=== PATIENT | female | born 1945 | race Caucasian/White ===

== ENCOUNTER → 2019-01-20 | Outpatient (CLI) | payer MEDICARE ==
[2019-01-20 18:17] LABS: Anisocytosis Slight; HCT 34.9 % (34.0-46.0); HGB 10.3 gm/dL (11.4-16.0); Hypochromasia Marked; MCH 24.8 pg (25.0-35.0); MCHC 29.4 g/dL (31.0-37.0); MCV 84.1 fL (80.0-100.0); Mean Platelet Volume 6.4; Platelet Count 352 k/uL (150-450); RBC 4.14 m/uL (3.80-5.40); RDW 17.2 % (11.5-15.5); WBC 8.8 k/uL (3.8-10.6)
[2019-01-20 18:24] LABS: ALT 11 U/L (9-52); Anion Gap 11 mmol/L; Blood Urea Nitrogen 14 mg/dL (7-17); Calcium 9.8 mg/dL (8.4-10.2); Carbon Dioxide 25 mmol/L (22-30); Chloride 106 mmol/L (98-107); Glucose 72 mg/dL (74-99); Potassium 4.3 mmol/L (3.5-5.1); Sodium 142 mmol/L (137-145)
--- NOTE | 2019-01-20 19:23 | CT ---
EXAMINATION TYPE: CT angio chest DATE OF EXAM: 01/20/2019 COMPARISON: NONE HISTORY: SOB, possible pulmonary embolism CT DLP: 739.6 mGycm. Automated Exposure Control for Dose Reduction was Utilized. CONTRAST: CTA scan of the thorax is performed without and with IV Contrast, patient injected with 70cc mL of Is ovue 370, pulmonary embolism protocol. MIP Images are created on CT scanner and reviewed. FINDINGS: LUNGS: Mild to moderate underlying emphysematous change is present with upper lobe fibrotic changes a nd bleb formation noted bilaterally. No suspicious focal consolidation. No suspicious masses. No pleu ral effusion or pneumothorax. MEDIASTINUM: There is satisfactory enhancement of the pulmonary artery and its branches, there is no CT evidence for pulmonary embolism. Satisfactory enhancement of left heart system aorta is identifie d. There is no thoracic aortic aneurysm or dissection. Mild to moderate calcified plaque along course of descending aorta is noted. There are no greater than 1 cm hilar or mediastinal lymph nodes. No pericardial effusion is seen. Cardiomegaly is present. OTHER: Visualized liver is hypodense consistent with diffuse fatty infiltration. Moderate multilevel anterior and lateral spurring in the thoracic spine is present. Cholecystectomy clips are noted. IMPRESSION: 1. No CT evidence for acute pulmonary embolism. 2. Cardiomegaly with chronic emphysematous and parenchymal fibrotic changes most prominent in the flores ateral upper lobes. No suspicious focal infiltrate.
== END | disposition home or self-care (01) ==
LOC: RADCTMAIN 17:03
PROVIDERS: ATTEND Family Medicine
DX: I51.7 Cardiomegaly (principal); J43.9 Emphysema, unspecified; J84.10 Pulmonary fibrosis, unspecified; E03.9 Hypothyroidism, unspecified; E78.5 Hyperlipidemia, unspecified; E11.9 Type 2 diabetes mellitus without complications; I10 Essential (primary) hypertension
CPT/HCPCS: 84439; 80048; 84443; 84460; 85027; 83036; 71275; 36415; Q9967

== ENCOUNTER → 2019-03-09 | Outpatient (CLI) | payer MEDICARE ==
[2019-03-09 16:27] LABS: Anisocytosis Slight; Basophils # (A) 0.1 k/uL (0-0.2); Basophils % (A) 1 %; Eosinophils # (A) 0.3 k/uL (0-0.7); Eosinophils % (A) 3 %; HGB 10.2 gm/dL (11.4-16.0); Hypochromasia Marked; Lymphocytes # (A) 1.5 k/uL (1.0-4.8); Lymphocytes % (A) 15 %; MCH 25.2 pg (25.0-35.0); MCHC 29.9 g/dL (31.0-37.0); MCV 84.4 fL (80.0-100.0); Mean Platelet Volume 6.9; Monocytes # (A) 0.7 k/uL (0-1.0); Monocytes % (A) 7 %; Neutrophils # (A) 6.8 k/uL (1.3-7.7); Neutrophils % (A) 70 %; Platelet Count 386 k/uL (150-450); RBC 4.03 m/uL (3.80-5.40); RDW 18.2 % (11.5-15.5); WBC 9.7 k/uL (3.8-10.6)
[2019-03-09 17:14] LABS: Erythrocyte Sedimentation Rate 50 mm/hr (0-20)
[2019-03-10 00:03] LABS: Albumin 4.7 g/dL (3.80-4.90); Albumin/Globulin Ratio 2.61 (1.60-3.17); Anion Gap 11.4 mmol/L (4.00-12.00); BUN/Creat Ratio 22.5 Ratio (12.00-20.00); Calcium 9.6 mg/dL (8.7-10.3); Carbon Dioxide 24.6 mmol/L (21.6-31.8); Globulin 1.8 g/dL (1.6-3.3); Potassium 4.3 mmol/L (3.5-5.5); Total Bilirubin 0.3 mg/dL (0.2-1.2); Total Protein 6.5 g/dL (6.2-8.2)
[2019-03-10 00:11] LABS: T4, Free (Free Thyroxine) 1.2 ng/dL (0.80-1.80)
[2019-03-10 01:04] LABS: Hepatitis A Antibody IgM Non-Reactive (Non-Reactive); Hepatitis B Core IgM Non-Reactive (Non-Reactive)
[2019-03-10 01:13] LABS: Rheumatoid Factor <4 IU/mL (0-15)
== END | disposition home or self-care (01) ==
LOC: LABWHC1 15:37
PROVIDERS: ATTEND Internal Medicine
DX: M35.9 Systemic involvement of connective tissue, unspecified (principal)
CPT/HCPCS: 36415; 80053; 80074; 82164; 82550; 84439; 84443; 85025; 85652; 86038; 86141; 86235; 86431

== ENCOUNTER → 2019-03-25 | Outpatient (CLI) | payer MEDICARE, OTHER ==
[2019-03-25 14:25] LABS: Anisocytosis Slight; Basophils # (A) 0.1 k/uL (0-0.2); Basophils % (A) 1 %; Eosinophils # (A) 0.2 k/uL (0-0.7); Eosinophils % (A) 2 %; HCT 33.5 % (34.0-46.0); HGB 9.9 gm/dL (11.4-16.0); Hypochromasia Marked; Lymphocytes # (A) 1.4 k/uL (1.0-4.8); Lymphocytes % (A) 14 %; MCH 25.1 pg (25.0-35.0); MCHC 29.5 g/dL (31.0-37.0); MCV 85.1 fL (80.0-100.0); Mean Platelet Volume 6.4; Monocytes # (A) 0.6 k/uL (0-1.0); Monocytes % (A) 6 %; Neutrophils # (A) 7.5 k/uL (1.3-7.7); Neutrophils % (A) 75 %; Platelet Count 412 k/uL (150-450); RBC 3.94 m/uL (3.80-5.40); RDW 19.1 % (11.5-15.5)
[2019-03-25 14:30] LABS: African American GFR (CKD) >90 (>60 ml/min/1.73 sqM); Anion Gap 13 mmol/L; Blood Urea Nitrogen 17 mg/dL (7-17); Carbon Dioxide 22 mmol/L (22-30); Chloride 104 mmol/L (98-107); Glucose 178 mg/dL (74-99); Potassium 4.7 mmol/L (3.5-5.1); Sodium 139 mmol/L (137-145)
[2019-03-25 14:35] LABS: Partial Thromboplastin Time 23.9 sec (22.0-30.0); Prothrombin Time 10.4 sec (9.0-12.0)
== END | disposition home or self-care (01) ==
LOC: LABPAT 13:14
PROVIDERS: ATTEND Thoracic Surgery (Cardiothoracic Vascular Surgery)
DX: Z01.818 Encounter for other preprocedural examination (principal); Z01.812 Encounter for preprocedural laboratory examination; J84.9 Interstitial pulmonary disease, unspecified
CPT/HCPCS: 36415; 80051; 82565; 82947; 84520; 85025; 85610; 85730; 93005

== ENCOUNTER 2019-04-08 06:34 | Day surgery (SDC) | payer MEDICARE, OTHER ==
[~2019-04-08 06:34] MED LIST: DEXAMETHASONE SOD PHOSPHATE 10 MG/ML 1 ML VIAL IV ONE; HYDROmorphone 0.5 MG/0.5 ML SYRINGE IVP PRN; LACTATED RINGERS 1,000 ML IV SCH; LIDOCAINE 1% 20 ML VIAL (10MG/ML) FOR IV START INTRADERMA PRN; MIDAZOLAM 2 MG/2 ML VIAL IV PRN; ONDANSETRON 4 MG/2 ML VIAL IVP ONE; Pre Op ABX Message 1 EACH MISC MISCELLANE ONE; SCOPOLAMINE 1.5MG/72HR PATCH TRANSDERM ONE
[2019-04-08 07:28] LABS: Glucose,Whole Blood 131 mg/dL (75-99)
[2019-04-08] MEDS ORDERED: ROCURONIUM BROMIDE 10 MG/ML 10 ML VIAL IV ONE (07:55)
[2019-04-08] MEDS ORDERED: fentaNYL (PF) 50 MCG/ML 2 ML AMP ONE (07:55)
[2019-04-08] MEDS ORDERED: GLYCOPYRROLATE 0.2 MG/ML 2 ML VIAL ONE (07:55)
[2019-04-08] MEDS ORDERED: SUCCINYLCHOLINE CHLORIDE 100 MG/5 ML SYR IV ONE (07:55)
[2019-04-08] MEDS ORDERED: NEOSTIGMINE 1 MG/ML 10 ML VIAL ONE (07:55)
[2019-04-08] MEDS ORDERED: PROPOFOL 10 MG/ML 20 ML VIAL IV ONE (07:55)
[2019-04-08] MEDS ORDERED: PHENYLEPHRINE-0.9% NACL SYG 1 MG/10 ML SYRINGE ONE (07:55)
[2019-04-08] MEDS ORDERED: LIDOCAINE 1% INJ 10MG/ML (20 ML MDV) ONE (07:55)
[2019-04-08] MEDS ORDERED: MIDAZOLAM (PF) 2 MG/2 ML VIAL IV ONE (08:00)
[2019-04-08] MEDS ORDERED: SODIUM CHLORIDE 0.9% 100 ML with ceFAZolin 2,000 MG IV ONE ×2 (08:30)
[2019-04-08] MEDS ORDERED: BUPIVACAINE (PF) 0.5% 30 ML VIAL SQ ONE (08:45)
[2019-04-08] MEDS ORDERED: LACTATED RINGERS 1,000 ML IV ONE (08:57)
[2019-04-08] MEDS ORDERED: TRIAMCINOLONE 0.1% CREAM 80 GM TUBE TOPICAL PRN (09:02)
[2019-04-08] MEDS ORDERED: NYSTATIN 100,000UNIT/GM CREAM 30 GM TUBE TOPICAL PRN (09:02)
--- NOTE | 2019-04-08 09:27 | P.OP ---
Date of Procedure: 04/08/19 Preoperative Diagnosis: Bilateral pulmonary infiltrates Postoperative Diagnosis: Same Procedure(s) Performed: Left thoracoscopic lung biopsy Anesthesia: YOGI Surgeon: Alexander Carolina Sat Tutor #1: Diego Haynes Estimated Blood Loss (ml): 10 IV fluids (ml): 800 Urine output (ml): 0 Pathology: other (Biopsies of left upper and lower lobe sent for pathology and cultures) Condition: stable Disposition: PACU Indications for Procedure: 74-year-old female with symptomatic dyspnea and bilateral pulmonary infiltrates referred for biopsy by Dr. Carmelina Denis. Operative Findings: Poor lung compliance, normal lung consistency Description of Procedure: The patient was brought to the operating room, placed supine on the operating table, anesthetized and intubated with a double-lumen endotracheal tube. Tube was positioned with fiberoptic bronchoscopy. Tube was secured and the patient turned into the right lateral decubitus position. The left chest was sterilely prepped and draped. 3 one-inch incisions were made in the left chest and the video thoracoscope was introduced. Single lung insufflation had begun. The lung did not deflate well due to poor lung compliance. Generous biopsies of the left upper lobe and left lower lobe were obtained with multiple firings of Endo BARRY stapler. The specimens were placed on the back table and cut and a small p ortion sent for culture, the remainder sent for pathology. 28-Persian chest tube was placed through separate stab incision and positioned posterior apically. It was secured with 0 Ethibond. The lung was reinflated under thoracoscopic visualization and then the thoracoscope was removed. The incisions were closed with layers of Vicryl suture. The ribs were anesthetized with half percent Marcaine at the level of the incisions. Skin glue and dry sterile dressings were applied. The patient was turned supine and was still pending extubation at the time of this dictation.
--- NOTE | 2019-04-08 10:05 | XR ---
EXAMINATION TYPE: XR chest 1V portable DATE OF EXAM: 04/08/2019 COMPARISON: 03/09/2019 HISTORY: Post VATS FINDINGS: There is a diffuse interstitial pattern with cardiomegaly. Left-sided chest tube seen with no sizable pneumothorax. Left basilar consolidation and small effusion suspected. Hypertrophic change of the sp ine. IMPRESSION: 1. No pneumothorax. 2. Cardiomegaly with interstitial pattern may be related to reduced inspiration correlate clinically to exclude mild venous congestion. 3. Left basilar atelectasis or infiltrate with small pleural effusion.
[2019-04-08] MEDS ORDERED: ONDANSETRON 4 MG/2 ML VIAL IVP PRN (10:20)
[2019-04-08] MEDS ORDERED: LACTATED RINGERS 1,000 ML IV SCH (10:20)
[2019-04-08] MEDS ORDERED: IPRATROPIUM-ALBUTEROL 3 ML NEB IH PRN (10:20)
[2019-04-08] MEDS: IPRATROPIUM-ALBUTEROL 3 ML NEB IH SCH ×3 (10:53→19:16)
[2019-04-08] MEDS: KETOROLAC 30 MG/ML 1 ML VIAL IVP SCH ×3 (10:55→23:12)
[2019-04-08 11:06] VITALS: BMI 28.5
[2019-04-08 11:35] LABS: Glucose,Whole Blood 169 mg/dL (75-99)
[2019-04-08] MEDS: traMADol 50 MG TAB PO SCH ×3 (12:01→23:12)
[2019-04-08] MEDS: INSULIN ASPART (NovoLOG) 100 UNIT/ML VIAL SQ SCH ×3 (12:02→20:47)
[2019-04-08] MEDS: ACETAMINOPHEN TAB 500 MG TAB PO PRN ×2 (13:27→20:46)
--- NOTE | 2019-04-08 13:28 | P.CNPUL ---
History of Present Illness Consult date: 04/08/19 Requesting physician: Alexander Carolina Reason for consult: abnormal CXR/CT Chief complaint: Shortness of breath History of present illness: This is a very pleasant 74-year-old female patient who follows with Dr. Driscoll as her primary care physician. She has a history of hypothyroidism, diabetes mellitus, GERD, diverticular disease, hyperlipidemia, obesity, hypertension, COPD with FEV1 value 77% of predicted and chronic hypoxic respiratory failure. She had been seen by Dr. Denis over 3 years ago and at that time her pulmonary status was stable. She was back as a new patient on 03/09/2019 after finding abnormal having an abnormal CAT scan of the chest. There were evidence of mild emphysematous changes in the upper lobes. There was some fibrotic changes noted as well. He has significant complaints of shortness of breath on minimal exertion. No cough or congestion. No hemoptysis. She was referred to Dr. Carolina for a VATS procedure and biopsy which was performed here today. She had undergone biopsies of left upper and lower lobes and chest tube remains in place. She is seen today in consultation on the selective care unit. She is awake and alert in no acute distress. He is requiring 8 L high flow nasal cannula to maintain O2 saturations in the 90s. She's afebrile. Hemodynamically stable she's been initiated on DuoNeb inhalations and antibiotics in the form of cefazolin. He did Ringer's at 50 MLS per hour. She is educated regarding the use the incentive spirometer. Chest x-ray shows no evidence of pneumothorax. There is some left basilar atelectasis with small effusion. Pathology pending. Review of Systems REVIEW OF SYSTEMS: CONSTITUTIONAL: Denies any recent significant weight loss or weight gain. EYES: Denies change in vision. EARS, NOSE, MOUTH, THROAT: Denies headaches, denies sore throat. CARDIOVASCULAR: Denies chest pain, palpitations or syncopal episodes. RESPIRATORY: Positive for shortness of breath, no significant cough, congestion or hemoptysis. GASTROINTESTINAL: Denies change in appetite, denies abdominal pain GENITOURINARY: Denies hematuria, denies infections. MUSKULOSKELETAL: Denies pain, denies swelling. INTEGUMENTARY: Denies rash, denies eczema. NEUROLOGICAL: Denies recent memory loss, no recent seizure activity. PSYCHIATRIC: Denies anxiety, denies depression. HEMATOLOGIC/LYMPHATIC: Denies anemia, denies enlarged lymph nodes. Past Medical History Past Medical History: Coronary Artery Disease (CAD), Chest Pain / Angina, CVA/TIA, Diabetes Mellitus, GERD/Reflux, Hyperlipidemia, Hypertension, Thyroid Disorder Additional Past Medical History / Comment(s): SOB w/ last 6 mos started on oxygen prn-not sure how many liters,anemia,vertigo,Hx TIAs yrs ago-no residual,hypothyroid,restless leg syndrome,diverticulitis,IBS History of Any Multi-Drug Resistant Organisms: None Reported Past Surgical History: Cholecystectomy, Tonsillectomy Additional Past Surgical History / Comment(s): flores carotid endarterectomy,left subclavian "balloon procedure to clean out",glaucoma and cataract flores eyes,rt knee torn meniscus,mult laparoscopies,flores breast bx. VATS procedure 04/08 Past Anesthesia/Blood Transfusion Reactions: Motion Sickness Additional Past Anesthesia/Blood Transfusion Reaction / Comment(s): vertigo,no hx blood transfusion Smoking Status: Former smoker - Past Family History Mother Family Medical History: Cancer Additional Family Medical History / Comment(s): lung Father Family Medical History: Myocardial Infarction (DE) Medications and Allergies Home Medications Medication Instructions Recorded Confirmed Type Acetaminophen/Diphenhydramine 2 tab PO HS 04/02/19 04/02/19 History [Tylenol PM 500-25mg] Aspirin 81 mg PO DAILY 04/02/19 04/02/19 History Dicyclomine HCl 10 mg PO BID 04/02/19 04/02/19 History Etodolac [Lodine] 400 mg PO BID PRN 04/02/19 04/02/19 History Gemfibrozil [Lopid] 600 mg PO AC-BID 04/02/19 04/02/19 History Insulin Aspart [NovoLOG Flexpen] 0 units SQ TID-W/MEALS 04/02/19 04/02/19 History Insulin Glargine,Hum.rec.anlog 60 units SQ HS 04/02/19 04/02/19 History [Toujeo Solostar] Levothyroxine Sodium [Synthroid] 100 mcg PO QAM 04/02/19 04/02/19 History Lisinopril [Zestril] 20 mg PO BID 04/02/19 04/02/19 History Metoprolol Succinate (ER) [Toprol 100 mg PO QAM 04/02/19 04/02/19 History Xl] Multivitamins, Thera [Multivitamin 1 tab PO DAILY 04/02/19 04/02/19 History (formulary)] Nitroglycerin Sl Tabs [Nitrostat] 0.4 mg SUBLINGUAL Q5M PRN 04/02/19 04/08/19 History Nystatin 100,000Unit/gm Cream 1 applic TOPICAL BID PRN 04/02/19 04/02/19 History [Mycostatin Cream] Omeprazole [PriLOSEC] 20 mg PO HS 04/02/19 04/02/19 History Simvastatin 40 mg PO HS 04/02/19 04/02/19 History Triamcinolone 0.1% Cream [Kenalog 1 applic TOPICAL TID PRN 04/02/19 04/02/19 History 0.1% Cream] Venlafaxine HCl ER [Effexor XR] 150 mg PO HS 04/02/19 04/02/19 History clonazePAM 1 mg PO HS 04/02/19 04/02/19 History metFORMIN HCL 1,000 mg PO BID 04/02/19 04/02/19 History Allergies Allergy/AdvReac Type Severity Reaction Status Date / Time ampicillin Allergy Rash/Hives Verified 04/08/19 06:55 egg Allergy Nausea & Verified 04/08/19 06:55 Vomiting & Diarrhea Sulfa (Sulfonamide Allergy Rash/Hives Verified 04/08/19 06:55 Antibiotics) Physical Exam Vitals: Vital Signs Temp Pulse Pulse Resp BP Pulse Ox 04/08/19 11:13 14 04/08/19 11:08 67 04/08/19 11:07 92 L 04/08/19 10:59 97.5 F L 66 14 106/51 92 L 04/08/19 10:55 69 04/08/19 10:15 66 18 90/50 92 L 04/08/19 10:00 66 16 96/52 93 L 04/08/19 09:45 66 16 90/52 92 L 04/08/19 09:34 97.6 F 64 18 99/52 92 L 04/08/19 07:09 97.7 F 99 16 175/82 85 L Intake and Output 04/07/19 04/08/19 04/08/19 22:59 06:59 14:59 Intake Total 1100 Output Total 23 Balance 1077 Intake: IV 1100 Output: Chest Tube Drainage 20 Chest Tube Left Lateral 20 Chest Estimated Blood Loss 3 Other: Weight 73 kg GENERAL EXAM: Alert, comfortable in no apparent distress. On 8 L high flow nasal cannula. HEAD: Normocephalic. EYES: Normal reaction of pupils, equal size. NOSE: Clear with pink turbinates. THROAT: No erythema or exudates. NECK: No masses, no JVD. CHEST: No chest wall deformity. Left-sided chest tube secured in place. LUNGS: Equal air entry coarse rhonchi more so on the left. CVS: S1 and S2 normal with no audible murmur, regular rhythm. ABDOMEN: No hepatosplenomegaly, normal bowel sounds, no guarding or rigidity. SPINE: No scoliosis or deformity SKIN: No rashes CENTRAL NERVOUS SYSTEM: No focal deficits, tone is normal in all 4 extremities. EXTREMITIES: There is no peripheral edema. No clubbing, no cyanosis. Peripheral pulses are intact. Results - Laboratory Findings Abnormal lab findings: Abnormal Labs 04/08/19 04/08/19 07:23 11:33 POC Glucose (mg/dL) 131 H 169 H - Diagnostic Findings Chest x-ray: image reviewed Assessment and Plan Assessment: Impression: #1 Acute on chronic hypoxic respiratory failure secondary to interstitial lung disease/pulmonary fibrosis, suspect UIP. Status post VATS procedure with biopsies of the left upper and lower lobes. Postoperative day #0. #2 Chronic hypoxic respiratory failure secondary to suspected pulmonary fibrosis and chronic obstructive pulmonary disease. FEV1 value 77% of predicted. #3 [id number] smoking history however quit in 1999. #4 Morbid obesity. #5 Irritable bowel syndrome. #6 Gastroesophageal reflux disease. #7 Hypertension. #8 Hyperlipidemia. #9 Diabetes mellitus, type II. #10 Hypothyroidism. Plan: The patient was seen and evaluated by Dr. Denis. Chest x-ray reviewed. She is needing increased encouragement regarding these the incentive spirometer and cough and deep breathing exercises. Chest tube remains in place. We will titrate down the FiO2 as tolerated. Continue bronchodilators. Increase her activity as tolerated. We'll continue to follow and make further recommendations based on her clinical status. I, the cosigning physician, performed a history & physical examination of the patient. Lungs sounds with coarse rhonchi more so on the left. Maintaining good O2 saturations in the 90s on 8 L high flow nasal cannula. I discussed the assessment and plan of care with my nurse practitioner, Kaity Fraser. I attest to the above note as dictated by her. Time with Patient: Greater than 30
[2019-04-08] MEDS: HEPARIN SODIUM,PORCINE 5,000 UNIT/ML 1 ML VIAL SQ SCH ×2 (15:59→23:11)
[2019-04-08 16:47] LABS: Glucose,Whole Blood 155 mg/dL (75-99)
[2019-04-08 20:24] LABS: Glucose,Whole Blood 123 mg/dL (75-99)
[2019-04-08] MEDS: LISINOPRIL 20 MG TAB PO SCH (20:47)
[2019-04-08] MEDS: metFORMIN 500 MG TAB PO SCH (20:47)
[2019-04-08] MEDS: DICYCLOMINE 10 MG CAP PO SCH (20:47)
[2019-04-08] MEDS ORDERED: INSULIN DETEMIR (LEVEMIR) 100 UNIT/ML SYR SQ SCH (21:00)
[2019-04-08] MEDS ORDERED: clonazePAM 1 MG TAB PO SCH (21:00)
[2019-04-08] MEDS ORDERED: ATORVASTATIN 20 MG TAB PO SCH (21:00)
[2019-04-08] MEDS ORDERED: VENLAFAXINE HCL ER 150 MG CAP PO SCH (21:00)
[2019-04-08] MEDS ORDERED: PANTOPRAZOLE 40 MG TABLET PO SCH (21:00)
[2019-04-09 06:28] LABS: Anisocytosis Slight; Basophils % (A) 0 %; Eosinophils # (A) 0.2 k/uL (0-0.7); Eosinophils % (A) 2 %; HGB 8.5 gm/dL (11.4-16.0); Hypochromasia Marked; Lymphocytes # (A) 0.9 k/uL (1.0-4.8); Lymphocytes % (A) 9 %; MCH 25.7 pg (25.0-35.0); MCHC 29.5 g/dL (31.0-37.0); MCV 87.1 fL (80.0-100.0); Mean Platelet Volume 6.5; Monocytes # (A) 0.6 k/uL (0-1.0); Monocytes % (A) 6 %; Neutrophils # (A) 8.3 k/uL (1.3-7.7); Neutrophils % (A) 80 %; Platelet Count 285 k/uL (150-450); RBC 3.33 m/uL (3.80-5.40); WBC 10.4 k/uL (3.8-10.6)
[2019-04-09] MEDS ORDERED: LEVOTHYROXINE 100 MCG TAB PO SCH (06:30)
[2019-04-09 06:37] LABS: Glucose,Whole Blood 121 mg/dL (75-99)
[2019-04-09 06:42] LABS: African American GFR (CKD) >90 (>60 ml/min/1.73 sqM); Anion Gap 9 mmol/L; Blood Urea Nitrogen 17 mg/dL (7-17); Calcium 9.3 mg/dL (8.4-10.2); Carbon Dioxide 26 mmol/L (22-30); Chloride 104 mmol/L (98-107); Glucose 106 mg/dL (74-99); Potassium 4.5 mmol/L (3.5-5.1); Sodium 139 mmol/L (137-145)
[2019-04-09] MEDS: traMADol 50 MG TAB PO SCH (07:08)
[2019-04-09] MEDS: KETOROLAC 30 MG/ML 1 ML VIAL IVP SCH ×2 (07:09→12:13)
[2019-04-09] MEDS: IPRATROPIUM-ALBUTEROL 3 ML NEB IH SCH ×2 (07:58→11:10)
[2019-04-09] MEDS: metFORMIN 500 MG TAB PO SCH (08:05)
[2019-04-09] MEDS: DICYCLOMINE 10 MG CAP PO SCH (08:05)
[2019-04-09] MEDS: HEPARIN SODIUM,PORCINE 5,000 UNIT/ML 1 ML VIAL SQ SCH (08:06)
[2019-04-09] MEDS: LISINOPRIL 20 MG TAB PO SCH (08:06)
[2019-04-09] MEDS: INSULIN ASPART (NovoLOG) 100 UNIT/ML VIAL SQ SCH ×2 (08:06→12:13)
--- NOTE | 2019-04-09 08:14 | P.PN ---
Subjective Progress Note Date: 04/09/19 Principal diagnosis: Bilateral pulmonary infiltrates. Previous medical history of respiratory insufficiency with home oxygen use, COPD with FEV1 65% of predicted and DLCO 33%, previous tobacco dependance with 30 pack-year history, hypertension, diabetes, coronary artery disease, obesity, TIA status post left carotid endarterectomy, hypothyroid, hyperlipidemia, GERD, inflammatory bowel disease, RLS, depression, and family history of cancer and heart disease. POD#1 left thoracoscopic lung biopsy Postoperative urinary retention requiring straight cath, unexpected The patient is currently sitting up in bed on the cardiac step-down unit in no acute distress eating breakfast. Her chest tube was placed to water seal yesterday and there is currently no air leak present. She does complain of post surgical incisional pain which is controlled on current medication regimen. Also complains of shortness of breath but no more than normal for her. Currently on 4 LPM NC, states she is on home O2 but doesn't know the doseage. She has had urinary retention since surgery requiring straight catheterization with only one spontaneous void, nursing placed sears catheter. Objective - Vital Signs Vital signs: Vital Signs Temp 98.3 F 04/09/19 00:00 Pulse 83 04/09/19 00:00 Resp 20 04/09/19 00:00 BP 127/79 04/09/19 00:00 Pulse Ox 95 04/09/19 00:00 Intake & Output 04/08/19 04/09/19 04/09/19 18:59 06:59 18:59 Intake Total 1340 240 Output Total 513 975 Balance 827 -735 Weight 73 kg 75.1 kg Intake: IV 1100 Oral 240 240 Output: Chest Tube Drainage 60 25 Chest Tube Left Lateral 60 25 Chest Urine 450 950 Straight 450 600 Estimated Blood Loss 3 Other: # Voids 1 - Constitutional General appearance: Present: cooperative, no acute distress - Respiratory Details: Lungs sounds diminished bilaterally. Respirations even, non-labored. Currently on 4 LPM NC with oxygen saturation 95%. Able to achieve 500 mL on her incentive spirometer. Left pleural chest tube to water seal, 215 mL serous drainage since surgery, no air leak present. - Cardiovascular Details: S1/S2 present. Regular rate, rhythm, normal sinus rhythm on telemetry. Palpable peripheral pulses bilaterally. No edema present. No calf pain or tenderness noted. SCDs present. - Gastrointestinal Gastrointestinal Comment(s): Abdomen soft, non-tender, non-distended. Active bowel sounds x 4 quadrants. Tolerating diet. - Genitourinary Genitourinary Comment(s): Patient has had urinary retention requiring straight catheterization since surgery with one episode of spontaneous voiding. - Integumentary Integumentary Comment(s): Skin warm, dry with evidence of good perfusion. Left chest tube site covered with dry, intact dressing. - Neurologic Neurologic: Present: CNII-XII intact - Musculoskeletal Musculoskeletal: Present: strength equal bilaterally - Psychiatric Psychiatric: Present: A&O x's 3, appropriate affect, intact judgment & insight - Allied health notes Allied health notes reviewed: nursing - Labs CBC & Chem 7: 04/09/19 05:59 04/09/19 05:59 Labs: Abnormal Lab Results - Last 24 Hours (Table) 04/08/19 04/08/19 04/08/19 Range/Units 11:33 16:46 20:22 RBC (3.80-5.40) m/uL Hgb (11.4-16.0) gm/dL Hct (34.0-46.0) % MCHC (31.0-37.0) g/dL RDW (11.5-15.5) % Neutrophils # (1.3-7.7) k/uL Lymphocytes # (1.0-4.8) k/uL Glucose (74-99) mg/dL POC Glucose (mg/dL) 169 H 155 H 123 H (75-99) mg/dL 04/09/19 04/09/19 04/09/19 Range/Units 05:59 05:59 06:36 RBC 3.33 L (3.80-5.40) m/uL Hgb 8.5 L (11.4-16.0) gm/dL Hct 29.0 L (34.0-46.0) % MCHC 29.5 L (31.0-37.0) g/dL RDW 19.0 H (11.5-15.5) % Neutrophils # 8.3 H (1.3-7.7) k/uL Lymphocytes # 0.9 L (1.0-4.8) k/uL Glucose 106 H (74-99) mg/dL POC Glucose (mg/dL) 121 H (75-99) mg/dL Microbiology - Last 24 Hours (Table) 04/08/19 08:58 Gram Stain - Preliminary Lung - Left Lower Lobe Tissue Culture - Preliminary 04/08/19 08:58 Acid Fast Bacilli Smear - Final Lung - Left Lower Lobe Acid Fast Bacilli Culture - Preliminary 04/08/19 08:58 Acid Fast Bacilli Smear - Final Lung - Left Upper Lobe Acid Fast Bacilli Culture - Preliminary 04/08/19 08:58 Gram Stain - Preliminary Lung - Left Upper Lobe Tissue Culture - Preliminary 04/08/19 08:58 Anaerobic Culture - Preliminary Lung - Left Lower Lobe 04/08/19 08:58 Anaerobic Culture - Preliminary Lung - Left Upper Lobe 04/08/19 08:58 Fungal Culture - Preliminary Lung - Left Lower Lobe 04/08/19 08:58 Fungal Culture - Preliminary Lung - Left Upper Lobe - Imaging and Cardiology Chest x-ray: image reviewed Assessment and Plan Assessment: 1. Bilateral pulmonary infiltrates, status post left thoracoscopic lung biopsy 2. History of respiratory insufficiency with home oxygen use 3. COPD with FEV1 65% of predicted and DLCO 33% 4. Previous tobacco dependance with 30 pack-year history 5. Hypertension 6. Diabetes 7. Coronary artery disease with previous heart caths but no intervention 8. Obesity 9. History of TIAs status post left carotid endarterectomy 10. Hypothyroid 11. Hyperlipidemia 12. GERD 13. Inflammatory bowel disease 14. RLS 15. Depression 16. Family history of cancer and heart disease 17. Post-operative urinary retention, unexpected Plan: 1. Will discontinue left pleural chest tube. Repeat chest x-ray 2 hours later. 2. Discontinue Sears catheter. 3. Increase activity, ambulate in hallway. 4. Wean O2 as tolerated. Encourage incentive spirometry is 10 times every hour while awake. 5. Bronchodilators per pulmonology. 6. Pain management with current medication regimen. 7. As long as repeat chest x-ray is stable and patient is able to void we will discharge patient to home this afternoon with follow-up with Dr. Carolina next week. 8. More recommendations to follow. Time with Patient: Greater than 30
[2019-04-09] MEDS ORDERED: traMADol 50 MG TAB PO PRN (08:20)
[2019-04-09] MEDS ORDERED: ASPIRIN 81 MG PO SCH (09:00)
[2019-04-09] MEDS ORDERED: METOPROLOL SUCCINATE (ER) 100 MG TAB.ER.24H PO SCH (09:00)
[2019-04-09] MEDS ORDERED: MULTIVITAMINS, THERA 1 EACH TAB PO SCH (09:00)
[2019-04-09] MEDS ORDERED: FENOFIBRATE 160 MG TAB PO SCH (09:00)
[2019-04-09 09:39] VITALS: TEMP 98.7
--- NOTE | 2019-04-09 10:15 | XR ---
EXAMINATION TYPE: XR chest 2V DATE OF EXAM: 04/09/2019 COMPARISON: Chest x-ray 04/08/2019 HISTORY: Post VATS, chest tube TECHNIQUE: Frontal and lateral views of the chest are obtained. FINDINGS: Right-sided chest tube is in place. There is a small apical pneumothorax. Interstitium is increased. Heart size is stable. Patchy basilar density is noted. There are overlying cardiac leads. IMPRESSION: Postprocedural changes. Small left apical pneumothorax. Cardiomegaly. Interstitial lung disease.
--- NOTE | 2019-04-09 11:18 | P.PN ---
Subjective Progress Note Date: 04/09/19 Principal diagnosis: Acute on chronic hypoxic respiratory failure secondary to suspect usual interstitial pneumonia. This is a very pleasant 74-year-old female patient who follows with Dr. Driscoll as her primary care physician. She has a history of hypothyroidism, diabetes mellitus, GERD, diverticular disease, hyperlipidemia, obesity, hypertension, COPD with FEV1 value 77% of predicted and chronic hypoxic respiratory failure. She had been seen by Dr. Denis over 3 years ago and at that time her pulmonary status was stable. She was back as a new patient on 03/09/2019 after finding abnormal having an abnormal CAT scan of the chest. There were evidence of mild emphysematous changes in the upper lobes. There was some fibrotic changes noted as well. He has significant complaints of shortness of breath on minimal exertion. No cough or congestion. No hemoptysis. She was referred to Dr. Carolina for a VATS procedure and biopsy which was performed here today. She had undergone biopsies of left upper and lower lobes and chest tube remains in place. She is seen today in consultation on the selective care unit. She is awake and alert in no acute distress. He is requiring 8 L high flow nasal cannula to maintain O2 saturations in the 90s. She's afebrile. Hemodynamically stable she's been initiated on DuoNeb inhalations and antibiotics in the form of cefazolin. He did Ringer's at 50 MLS per hour. She is educated regarding the use the incentive spirometer. Chest x-ray shows no evidence of pneumothorax. There is some left basilar atelectasis with small effusion. Pathology pending. The patient is seen today 04/09/2019 in follow-up on the selective care unit. She is currently awake and alert in no acute distress. She is breathing easier today as compared to yesterday. Maintaining O2 saturations in the 90s on 4 L/m per nasal cannula. She's afebrile. Hemodynamically stable. Chest x-ray revealed a small left apical pneumothorax. Cardiomegaly and the interstitial lung disease. Chest tube has been removed. Follow-up chest x-ray pending. She is working well with the incentive spirometer. Cultures and pathology pending. White count 10.4. Hemoglobin 8.5. Creatinine 0.66. Objective - Vital Signs Vital signs: Vital Signs Temp 98.7 F 04/09/19 08:00 Pulse 95 08/02/19 08:11 Resp 22 04/09/19 08:00 BP 126/62 04/09/19 08:00 Pulse Ox 93 L 04/09/19 08:00 Intake & Output 04/08/19 04/09/19 04/09/19 18:59 06:59 18:59 Intake Total 1340 240 480 Output Total 513 1050 Balance 827 -810 480 Weight 73 kg 75.1 kg Intake: IV 1100 Oral 240 240 480 Output: Chest Tube Drainage 60 100 Chest Tube Left Lateral 60 100 Chest Urine 450 950 Straight 450 600 Estimated Blood Loss 3 Other: # Voids 1 - Exam GENERAL EXAM: Alert, active, comfortable in no apparent distress. On 4 L nasal cannula. HEAD: Normocephalic. EYES: Normal reaction of pupils, equal size. NOSE: Clear with pink turbinates. THROAT: No erythema or exudates. NECK: No masses, no JVD. CHEST: No chest wall deformity. Chest tube removed. Testing dry and intact. LUNGS: Equal air entry with basilar crackles. CVS: S1 and S2 normal with no audible murmur, regular rhythm. ABDOMEN: No hepatosplenomegaly, normal bowel sounds, no guarding or rigidity. SPINE: No scoliosis or deformity SKIN: No rashes CENTRAL NERVOUS SYSTEM: No focal deficits, tone is normal in all 4 extremities. EXTREMITIES: There is no peripheral edema. No clubbing, no cyanosis. Peripheral pulses are intact. - Labs CBC & Chem 7: 04/09/19 05:59 04/09/19 05:59 Labs: Abnormal Lab Results - Last 24 Hours (Table) 04/08/19 04/08/19 04/08/19 Range/Units 11:33 16:46 20:22 RBC (3.80-5.40) m/uL Hgb (11.4-16.0) gm/dL Hct (34.0-46.0) % MCHC (31.0-37.0) g/dL RDW (11.5-15.5) % Neutrophils # (1.3-7.7) k/uL Lymphocytes # (1.0-4.8) k/uL Glucose (74-99) mg/dL POC Glucose (mg/dL) 169 H 155 H 123 H (75-99) mg/dL 0804/09/19 04/09/19 Range/Units 05:59 05:59 06:36 RBC 3.33 L (3.80-5.40) m/uL Hgb 8.5 L (11.4-16.0) gm/dL Hct 29.0 L (34.0-46.0) % MCHC 29.5 L (31.0-37.0) g/dL RDW 19.0 H (11.5-15.5) % Neutrophils # 8.3 H (1.3-7.7) k/uL Lymphocytes # 0.9 L (1.0-4.8) k/uL Glucose 106 H (74-99) mg/dL POC Glucose (mg/dL) 121 H (75-99) mg/dL Microbiology - Last 24 Hours (Table) 04/08/19 08:58 Gram Stain - Preliminary Lung - Left Lower Lobe Tissue Culture - Preliminary 04/08/19 08:58 Gram Stain - Preliminary Lung - Left Upper Lobe Tissue Culture - Preliminary 04/08/19 08:58 Acid Fast Bacilli Smear - Final Lung - Left Lower Lobe Acid Fast Bacilli Culture - Preliminary 04/08/19 08:58 Acid Fast Bacilli Smear - Final Lung - Left Upper Lobe Acid Fast Bacilli Culture - Preliminary 04/08/19 08:58 Anaerobic Culture - Preliminary Lung - Left Lower Lobe 04/08/19 08:58 Anaerobic Culture - Preliminary Lung - Left Upper Lobe 04/08/19 08:58 Fungal Culture - Preliminary Lung - Left Lower Lobe 04/08/19 08:58 Fungal Culture - Preliminary Lung - Left Upper Lobe Assessment and Plan Assessment: Impression: #1 Acute on chronic hypoxic respiratory failure secondary to interstitial lung disease/pulmonary fibrosis, suspect UIP. Status post VATS procedure with biopsies of the left upper and lower lobes. Postoperative day #1. #2 Chronic hypoxic respiratory failure secondary to suspected pulmonary fibrosis and chronic obstructive pulmonary disease. FEV1 value 77% of predicted. #3 [id number] smoking history however quit in 1999. #4 Morbid obesity. #5 Irritable bowel syndrome. #6 Gastroesophageal reflux disease. #7 Hypertension. #8 Hyperlipidemia. #9 Diabetes mellitus, type II. #10 Hypothyroidism. Plan: The patient was seen and evaluated by Dr. Denis. Chest x-ray reviewed. Chest tube removed. Follow-up chest x-ray pending. She is working well with the incentive spirometer and cough and deep breathing exercises. Probable discharge today. She'll follow up with Dr. Denis in our office in 1-2 weeks' time to review the results of the biopsies. I, the cosigning physician, performed a history & physical examination of the patient. Lungs sounds with basilar crackles. Maintaining good O2 saturations in the 90s on 4 L high flow nasal cannula. I discussed the assessment and plan of care with my nurse practitioner, Kaity Fraser. I attest to the above note as dictated by her.
--- NOTE | 2019-04-09 11:21 | XR ---
EXAMINATION TYPE: XR chest 2V DATE OF EXAM: 04/09/2019 COMPARISON: Prior chest x-ray 04/09/2019 HISTORY: Status post chest tube removal TECHNIQUE: Frontal and lateral views of the chest are obtained. FINDINGS: Left-sided chest tube has been removed. Minimal apical pneumothorax persists. No other sig nificant interval change. IMPRESSION: Minimal left apical pneumothorax status post chest tube removal.
[2019-04-09 11:57] LABS: Glucose,Whole Blood 142 mg/dL (75-99)
[2019-04-09 12:55] VITALS: BP 137/63; PULSE 95; RESP 18
--- NOTE | 2019-04-09 14:52 | P.DS ---
Providers Expected date of discharge: 04/09/19 Attending physician: Alexander Carolina Consults: 04/08/19 10:20 Consult Physician Routine Consulting Provider: Carmelina Denis Consult Reason/Comments: left vats, known to you Do you want consulting provider notified?: Yes Primary care physician: [facility] Course: FINAL DIAGNOSIS: 1. Bilateral pulmonary infiltrates 2. History of respiratory insufficiency with home oxygen use 3. COPD with FEV1 65% of predicted and DLCO 33% 4. Previous tobacco dependence with [id number]-hofr history 5. Hypertension 6. Diabetes 7. Coronary artery disease 8. Obesity 9. TIA status post left carotid endarterectomy 10. Hypothyroid 11. Hyperlipidemia 12. GERD 13. Irritable bowel disease 14. Restless leg syndrome 15. Depression 16. Family history of cancer and heart disease 17. Postoperative urinary retention requiring straight catheterization PRINCIPAL PROCEDURE: 1. Left thoracoscopic lung biopsy HISTORY OF PRESENT ILLNESS: [ ]. The patient was referred to [] from cardiothoracic surgery. She was recommended to undergo [ ]. The usual perioperative course was discussed in detail with the patient and her family, all risks and benefits were explained, all questions were answered, and consent was obtained to proceed with surgery. The patient was discharged to home on maximal medical therapy to return as an outpatient for surgery [after obtaining dental clearance]. [The patient was kept inpatient due to the nature of her disease process.] HOSPITAL COURSE: The patient was brought to the hospital on 04/08/2019, taken to the preoperative area, prepared in the usual fashion, and subsequently taken to the operating room where Dr. Carolina performed a left thoracoscopic lung biopsy. Upon completion of surgery the patient was extubated and taken to the recovery room where she was monitored hemodynamically, and eventually admitted to 3 separate cardiac stepdown unit. The night of surgery her chest tube had no air leak and she was placed to waterseal. On postop day #1 her chest x-ray was stable, there was no air leak, and her left pleural chest tube was discontinued. She did experience urinary retention overnight requiring straight catheterization, however this resolved without further intervention. Her oxygen was titrated down although not discontinued completely as she is on oxygen at home, she was tolerating oral diet, her pain was controlled, and she was ready to be discharged to home on postoperative day #1. She received written and verbal instruction regarding her medications, activity restrictions, signs and symptoms requiring physician notification, and follow-up appointments. COMPLICATIONS: The patient experienced postoperative urinary retention which resolved without intervention. Patient Condition at Discharge: Stable Plan - Discharge Summary Discharge Rx Participant: No New Discharge Prescriptions: New Acetaminophen Tab [Tylenol] 1,000 mg PO Q6HR PRN tab PRN Reason: Fever And/ Or Pain Continue Triamcinolone 0.1% Cream [Kenalog 0.1% Cream] 1 applic TOPICAL TID PRN PRN Reason: yeast infection Nystatin 100,000Unit/gm Cream [Mycostatin Cream] 1 applic TOPICAL BID PRN PRN Reason: yeast infection Nitroglycerin Sl Tabs [Nitrostat] 0.4 mg SUBLINGUAL Q5M PRN PRN Reason: Chest Pain Multivitamins, Thera [Multivitamin (formulary)] 1 tab PO DAILY Dicyclomine HCl 10 mg PO BID Insulin Aspart [NovoLOG Flexpen] 0 units SQ TID-W/MEALS Insulin Glargine,Hum.rec.anlog [Toujeo Solostar] 60 units SQ HS metFORMIN HCL 1,000 mg PO BID Gemfibrozil [Lopid] 600 mg PO AC-BID Etodolac [Lodine] 400 mg PO BID PRN PRN Reason: Pain clonazePAM 1 mg PO HS Venlafaxine HCl ER [Effexor XR] 150 mg PO HS Omeprazole [PriLOSEC] 20 mg PO HS Levothyroxine Sodium [Synthroid] 100 mcg PO QAM Simvastatin 40 mg PO HS Metoprolol Succinate (ER) [Toprol XL] 100 mg PO QAM Lisinopril [Zestril] 20 mg PO BID Aspirin 81 mg PO DAILY Discontinued Acetaminophen/Diphenhydramine [Tylenol PM 500-25mg] 2 tab PO HS Discharge Medication List Aspirin 81 mg PO DAILY 04/02/19 [History] Dicyclomine HCl 10 mg PO BID 04/02/19 [History] Etodolac [Lodine] 400 mg PO BID PRN 04/02/19 [History] Gemfibrozil [Lopid] 600 mg PO AC-BID 04/02/19 [History] Insulin Aspart [NovoLOG Flexpen] 0 units SQ TID-W/MEALS 04/02/19 [History] Insulin Glargine,Hum.rec.anlog [Toujeo Solostar] 60 units SQ HS 04/02/19 [History] Levothyroxine Sodium [Synthroid] 100 mcg PO QAM 04/02/19 [History] Lisinopril [Zestril] 20 mg PO BID 04/02/19 [History] Metoprolol Succinate (ER) [Toprol XL] 100 mg PO QAM 04/02/19 [History] Multivitamins, Thera [Multivitamin (formulary)] 1 tab PO DAILY 04/02/19 [History] Nitroglycerin Sl Tabs [Nitrostat] 0.4 mg SUBLINGUAL Q5M PRN 04/02/19 [History] Nystatin 100,000Unit/gm Cream [Mycostatin Cream] 1 applic TOPICAL BID PRN 04/02/19 [History] Omeprazole [PriLOSEC] 20 mg PO HS 04/02/19 [History] Simvastatin 40 mg PO HS 04/02/19 [History] Triamcinolone 0.1% Cream [Kenalog 0.1% Cream] 1 applic TOPICAL TID PRN 04/02/19 [History] Venlafaxine HCl ER [Effexor XR] 150 mg PO HS 04/02/19 [History] clonazePAM 1 mg PO HS 04/02/19 [History] metFORMIN HCL 1,000 mg PO BID 04/02/19 [History] Acetaminophen Tab [Tylenol] 1,000 mg PO Q6HR PRN tab 04/09/19 [Rx] Follow up Appointment(s)/Referral(s): Carmelina Denis MD [STAFF PHYSICIAN] - 04/16/19 1:15 pm Attila Driscoll DO [Primary Care Provider] - 04/12/19 2:20 pm (Appointment still in place for June 03 at 3:00 PM. Please keep both appointments at this time. ) Alexander Carolina MD [STAFF PHYSICIAN] - 04/15/19 11:30 am Patient Instructions/Handouts: Acute Urinary Retention in Women (ED), Video Assisted Thoracoscopic Surgery (DC) Activity/Diet/Wound Care/Special Instructions: DISCHARGE INSTRUCTIONS: 1. No driving for 2 weeks, or until physician gives their ok. 2. No lifting, pushing, or pulling more than 10 pounds for 2 weeks. The physician will advise of any restriction changes. 3. Continue pain control per as needed orders with acetaminophen (Tylenol) and home dose of etodolac (Lodine). 4. Continue with incentive spirometry and splinting until otherwise directed by the physician. 5. Leave chest tube dressing for 48 hours. After that, remove all dressings and shower daily. 6. Routine incision care. No powders, lotions, ointments on incisions. 7. Please call surgeon/GROUNDWATER CONSULTANT for temp greater than 101 F or purulent drainage from incisions. Discharge Disposition: HOME SELF-CARE
== END 2019-04-09 15:41 | disposition home or self-care (01) ==
LOC: OR 06:34 → EDSTATUS 08:30 → 3SCARD 09:29 → OR 04-09 15:41
PROVIDERS: ATTEND Thoracic Surgery (Cardiothoracic Vascular Surgery)
DX: J84.10 Pulmonary fibrosis, unspecified (principal); J84.9 Interstitial pulmonary disease, unspecified; J96.21 Acute and chronic respiratory failure with hypoxia; J90 Pleural effusion, not elsewhere classified; J93.83 Other pneumothorax; I11.9 Hypertensive heart disease without heart failure; I35.1 Nonrheumatic aortic (valve) insufficiency; I65.23 Occlusion and stenosis of bilateral carotid arteries; E66.01 Morbid (severe) obesity due to excess calories; E03.9 Hypothyroidism, unspecified; E11.9 Type 2 diabetes mellitus without complications; J44.9 Chronic obstructive pulmonary disease, unspecified; J98.11 Atelectasis; K58.9 Irritable bowel syndrome, unspecified; G25.81 Restless legs syndrome; G89.29 Other chronic pain; F32.9 Major depressive disorder, single episode, unspecified; I25.10 Atherosclerotic heart disease of native coronary artery without angina pectoris; E78.2 Mixed hyperlipidemia; Z91.018 Allergy to other foods; Z91.040 Latex allergy status; N99.89 Other postprocedural complications and disorders of genitourinary system; R33.9 Retention of urine, unspecified; K21.9 Gastro-esophageal reflux disease without esophagitis; Z79.82 Long term (current) use of aspirin; Z88.2 Allergy status to sulfonamides; Z91.012 Allergy to eggs; Z87.891 Personal history of nicotine dependence; Z80.1 Family history of malignant neoplasm of trachea, bronchus and lung; Z82.49 Family history of ischemic heart disease and other diseases of the circulatory system; Z86.73 Personal history of transient ischemic attack (TIA), and cerebral infarction without residual deficits; Z79.4 Long term (current) use of insulin; Z79.890 Hormone replacement therapy; Z79.1 Long term (current) use of non-steroidal anti-inflammatories (NSAID); Z99.81 Dependence on supplemental oxygen; Z79.899 Other long term (current) drug therapy; Z90.49 Acquired absence of other specified parts of digestive tract; Z80.9 Family history of malignant neoplasm, unspecified; Z79.891 Long term (current) use of opiate analgesic; Z88.0 Allergy status to penicillin; Z98.890 Other specified postprocedural states; Z68.29 Body mass index [BMI] 29.0-29.9, adult
CPT/HCPCS: 32607; 94640 ×4; 94760 ×2; 80048; 85025; 88307; 87070; 87205; 87075; 87116; 87102; 87206; 71045; 71046; C1729; J2250 ×2; J1644 ×2; J2710; J0690 ×2; J2405; J2001; J3010; J1885 ×2; J2370; J0330; J2704

== ENCOUNTER → 2019-10-12 | Outpatient (CLI) | payer MEDICARE, OTHER ==
--- NOTE | 2019-10-13 12:01 | ECHOF ---
Referral Reason:I27.21 Secondary HTN MEASUREMENTS -------- HEIGHT: 157.5 cm WEIGHT: 63.5 kg BP: 170/88 RVIDd: 3.5 cm (< 3.3) IVSd: 1.3 cm (0.6 - 1.1) LVIDd: 3.8 cm (3.9 - 5.3) LVPWd: 1.3 cm (0.6 - 1.1) IVSs: 1.7 cm LVIDs: 2.6 cm LVPWs: 1.8 cm LA Diam: 3.3 cm (2.7 - 3.8) LAESV Index (A-L): 23.21 ml/m Ao Diam: 2.8 cm (2.0 - 3.7) AV Cusp: 1.8 cm (1.5 - 2.6) MV EXCURSION: 18.221 mm (> 18.000) MV EF SLOPE: 171 mm/s (70 - 150) EPSS: 1.0 cm MV E Edward: 0.60 m/s MV DecT: 134 ms MV A Edward: 1.08 m/s MV E/A Ratio: 0.56 AR PHT: 948 ms RAP: 5.00 mmHg RVSP: 52.78 mmHg TAPSE: 12.15 mm FINDINGS -------- Sinus rhythm. This was a technically good study. The left ventricular size is normal. There is mild concentric left ventricular hypertrophy. Overa ll left ventricular systolic function is normal with, an EF between 60 - 65 %. The right ventricle is mildly enlarged. Normal LA size by volume 22+/-6 ml/m2. The right atrium is normal in size. Interatrial and interventricular septum intact. There is mild aortic valve sclerosis. There is mild aortic regurgitation. The mitral valve leaflets are mildly thickened. Mild mitral annular calcification present. Mild m itral regurgitation is present. Mild tricuspid regurgitation present. There is moderate pulmonary hypertension. The right ventric ular systolic pressure, as measured by Doppler, is 52.78mmHg. Trace/mild (physiologic) pulmonic regurgitation. The aortic root size is normal. Normal inferior vena cava with normal inspiratory collapse consistent with estimated right atrial pre ssure of 5 mmHg. There is no pericardial effusion. CONCLUSIONS -------- 1. Sinus rhythm. 2. This was a technically good study. 3. The left ventricular size is normal. 4. There is mild concentric left ventricular hypertrophy. 5. Overall left ventricular systolic function is normal with, an EF between 60 - 65 %. 6. The right ventricle is mildly enlarged. 7. Normal LA size by volume 22+/-6 ml/m2. 8. The right atrium is normal in size. 9. Interatrial and interventricular septum intact. 10. There is mild aortic valve sclerosis. 11. There is mild aortic regurgitation. 12. The mitral valve leaflets are mildly thickened. 13. Mild mitral annular calcification present. 14. Mild mitral regurgitation is present. 15. Mild tricuspid regurgitation present. 16. There is moderate pulmonary hypertension. 17. The right ventricular systolic pressure, as measured by Doppler, is 52.78mmHg. 18. Trace/mild (physiologic) pulmonic regurgitation. 19. The aortic root size is normal. 20. Normal inferior vena cava with normal inspiratory collapse consistent with estimated right atrial pressure of 5 mmHg. 21. There is no pericardial effusion. SURVEY RESEARCH ANALYST: Ange Calles RDCS
== END | disposition home or self-care (01) ==
LOC: RADECHMAIN 16:30
PROVIDERS: ATTEND Internal Medicine
DX: I08.3 Combined rheumatic disorders of mitral, aortic and tricuspid valves (principal); I27.20 Pulmonary hypertension, unspecified; I27.21 Secondary pulmonary arterial hypertension
CPT/HCPCS: 93306

== ENCOUNTER → 2020-03-14 | Outpatient (CLI) | payer MEDICARE, OTHER ==
[2020-03-14 16:04] LABS: African American GFR (CKD) >90 (>60 ml/min/1.73 sqM); Blood Urea Nitrogen 19 mg/dL (7-17); Non-African American GFR(CKD) 86 (>60 ml/min/1.73 sqM)
--- NOTE | 2020-03-14 16:35 | CT ---
EXAMINATION TYPE: CT angio chest DATE OF EXAM: 03/14/2020 COMPARISON: 01/20/2019 HISTORY: 74-year-old female R06.02, Shortness of breath. TECHNIQUE: Contiguous axial scanning of the chest performed with IV Contrast, patient injected with 1 00 mL of Isovue 370. Coronal/sagittal MIP reconstructions performed. CT DLP: 340.8 mGycm Automated exposure control for dose reduction was used. FINDINGS: Heart borderline enlarged. There is reflux of contrast into the hepatic veins and right atrial dilata tion. Breathing motion artifacts are present. Large caliber to the main right pulmonary artery 2.9 cm. However, no pulmonary embolus is identified. Scattered nonenlarged calcified mediastinal and right hilar lymph nodes compatible with prior granulo matous disease. Mediastinal lymph nodes measure up to 8 mm. Moderate atherosclerotic arch calcifications. There may be a moderate to severe focal atherosclerotic narrowing in the proximal left subclavian artery with a stent in the more distal left subclavian art rachana. Bibasilar mild bronchiolectasis, some subpleural groundglass, upper lung cystic change probably in la rge part due to emphysema. Calcified anterior right upper lobe granuloma. No consolidation or pleural effusion. Bones: Anterior endplate spondylosis lower thoracic spine. IMPRESSION: 1. NO PULMONARY EMBOLUS IDENTIFIED. 2. HOWEVER, THERE IS BORDERLINE CARDIOMEGALY, RIGHT ATRIAL DILATATION, AND PULMONARY ARTERIAL HYPERTE NSION WITH REFLUX OF CONTRAST INTO THE HEPATIC VEINS. CORRELATE FOR CAUSES OF RIGHT HEART FAILURE. 3. UPPER LUNG CYSTIC CHANGES, LIKELY ON THE BASIS OF MODERATE EMPHYSEMA. THERE SEEMS TO BE SOME MILD INTERSTITIAL FIBROSIS AT THE LUNG BASES WELL. REPORT FOR POSSIBLE MODERATE TO SEVERE FOCAL ATROPHY SCARRING STENOSIS PROXIMAL LEFT SUBCLAVIAN ARTER Y. A STENT IS PRESENT IN THE MORE DISTAL LEFT SUBCLAVIAN ARTERY.
== END | disposition home or self-care (01) ==
LOC: RADCTMAIN 15:17
PROVIDERS: ATTEND Internal Medicine
DX: I51.7 Cardiomegaly (principal); I27.21 Secondary pulmonary arterial hypertension; J98.4 Other disorders of lung; Z95.828 Presence of other vascular implants and grafts; Z88.2 Allergy status to sulfonamides; Z91.012 Allergy to eggs; Z88.1 Allergy status to other antibiotic agents
CPT/HCPCS: 82565; 84520; 71275; 36415; Q9967